=== PATIENT | male | born 1980 | race Caucasian/White ===

== ENCOUNTER 2019-09-30 19:50 | Inpatient (IN) ==
[2019-09-30] MEDS ORDERED: ONDANSETRON INJ 2 MG/ML 2 ML VIAL IV STA (20:17)
[2019-09-30] MEDS ORDERED: KETOROLAC TROMETHAMINE 15 MG/ML VIAL IV ONE (20:17)
[2019-09-30] MEDS ORDERED: SODIUM CHLORIDE 0.9% 1000ML 2,000 ML IV ONE (20:26)
[2019-09-30 20:36] LABS: Basophils # (auto) 0.05 K/uL (0-0.2); Basophils % (auto) 0.5 %; Eosinophils # (auto) 0.66 K/uL (0-0.5); Eosinophils % (auto) 6.9 %; Hematocrit (blood only) 46.6 % (42-52); Hemoglobin 16.7 g/dL (14.0-18.0); Immature Granulocytes # (auto) 0.02 K/uL (0.00-0.02); Immature Granulocytes % (auto) 0.2 %; Lymphocytes # (auto) 1.94 K/uL (1.2-3.4); Lymphocytes % (auto) 20.3 %; Mean Corpuscular Hemoglobin 30.6 pg (25-34); Mean Corpuscular Hgb Conc 35.8 g/dL (32-36); Mean Corpuscular Volume 85.5 fL (80-100); Mean Platelet Volume 9.6 fL (7.4-10.4); Monocytes # (auto) 0.54 K/uL (0.11-0.59); Monocytes % (auto) 5.7 %; Neutrophils # (auto) 6.34 K/uL (1.4-6.5); Neutrophils % (auto) 66.4 %; Platelet Count 177 K/uL (130-400); RDW Coefficient of Variation 12.4 % (11.5-14.5); RDW Standard Deviation 38.2 fL (36.4-46.3); Red Blood Count 5.45 M/uL (4.7-6.1); White Blood Count 9.55 K/uL (4.8-10.8)
[2019-09-30 20:40] LABS: Appearance Urine Clear (Clear); Bacteria Urine Automated Negative (Negative); Bilirubin Urine Negative (Negative); Blood Urine Trace (Negative); Color Urine Yellow; Glucose Urine UA Negative (Negative); Ketones Urine Negative (Negative); Leukocyte Esterase Urine Trace (Negative); Nitrite Urine Negative (Negative); Protein Urine 1+ (Negative); RBC Urine Automated 0-4 /hpf (0-4); Specific Gravity Urine 1.026 (1.000-1.030); Urobilinogen Urine Negative (Negative); pH Urine 5.5 (4.5-7.5)
[2019-09-30 20:48] LABS: Albumin Level 3.6 gm/dl (3.4-5.0); Calcium 8.8 mg/dl (8.5-10.1); Creatinine Clr Calc Pharmacy 102.9 ml/min; Est GFR (African American) 97.2; Est GFR (Non-African American) 83.9; Potassium 3.6 mmol/L (3.5-5.1)
[2019-09-30 20:51] LABS: Albumin Globulin Ratio 0.9 (0.9-2); Bilirubin,Total 0.7 mg/dl (0.2-1); Total Protein 7.6 gm/dl (6.4-8.2)
[2019-09-30] MEDS ORDERED: IOVERSOL 100ml IV PRN (21:07)
--- NOTE | 2019-09-30 21:29 | CT Scan Report ---
CT OF THE ABDOMEN AND PELVIS WITH CONTRAST CLINICAL HISTORY: Left mid abdominal pain. COMPARISON STUDY: None. TECHNIQUE: Following IV administration of 94 mL of Optiray-320, axial images of the abdomen and pelvi s were obtained from the lung bases to the proximal femurs. Images were reviewed in the axial, sagitt al, and coronal planes. IV contrast was administered without complication. Automated exposure contro l was utilized for the study. A dose lowering technique was utilized adhering to the principles of A JAMIR. CT DOSE: 842.39 mGy.cm FINDINGS: Imaged portions of the lower chest demonstrate a trace left pleural effusion with left basi lar opacity suggestive of atelectasis. No fractures are identified within the visualized lower ribs. Fatty infiltration of the liver is noted. The adrenal glands, kidneys and pancreas are normal. There is mild to moderate splenomegaly. There is trace fluid along the inferior aspect of the spleen. There is an equivocal small laceration within the medial aspect of the spleen shown on axial image 71 of 5 16. There is trace fluid within the pelvis. There is no evidence for a bowel obstruction. The appendi x is normal. No pneumatosis, free air or portal venous gas is present. No suspicious osseous lesions are noted. There is no hydronephrosis. IMPRESSION: 1. Mild to moderate splenomegaly with trace fluid along the inferior aspect of the spleen which measu res just above water attenuation. This fluid is nonspecific however a splenic source is favored. Equi vocal small laceration within the medial aspect of the spleen. Correlation with trauma history is rec ommended. Close clinical follow-up is suggested. Findings discussed with Dr. Alvarado at time of dictat ion. 2. Fatty infiltration of the liver. ACT 112: Negative or not required by law. Electronically signed by: Best Oconnor M.D. 09/30/2019 9:28 PM
--- NOTE | 2019-09-30 22:15 | History & Physical Report ---
Date of Service September 30, 2019 Assessment & Plan (1) Left flank pain: (2) Splenic laceration: Review of his CAT scan he has a very minimal antral injury to the spleen minimal fluid. We will admit him for observation And I will asked the medical team to see him. We will repeat his H&H Does have mild splenomegaly which we may consider hematology consult at some point He most likely can be discharged home in 1 to 2 days pending on his progress History of Present Illness Primary Care Provider: NO PCP Patient presented to the emergency room he may have a kidney stone which she had when he was much younger He had some left upper quadrant pain several days ago which now is like it extended to his hip or in the flank area He had a CAT scan done is essentially normal except a relatively large spleen a potential wall laceration minimal fluid His vital signs are stable his H&H is stable Certainly does not appear to be any major active bleeding He does have a very large dog which could have jumped on him Allergies Allergy/AdvReac Type Severity Reaction Status Date / Time aspirin Allergy Unknown Unverified 09/30/19 21:13 onion Allergy Hives Unverified 09/30/19 21:12 CHERRIES Allergy Hives Uncoded 09/30/19 21:11 Home Medications Home Medications Medication Instructions Recorded Confirmed Type albuterol sulfate [Proventil HFA] 2 puff INHALATION DAILY 09/30/19 09/30/19 History aspirin [Aspir-Low] 81 mg PO DAILY 09/30/19 09/30/19 History Past Med/Surg History Medical History Kidney stones Surgical History No significant past surgical history Social History Preferred Language: Thai Feels Safe at Home: Yes Smoking Status: Former smoker Review of Systems Review of Systems: All systems reviewed & are unremarkable except as noted in HPI & below Physical Exam Physical Exam: His abdomen is flat and soft he has minimal pain and only slight tenderness in the left lower flank area Constitutional: well developed and well nourished; no acute distress Respiratory: normal respiratory effort; no respiratory distress Cardiovascular: Rate/Rhythm: regular rate and regular rhythm Skin: no rashes, warm and dry Neurologic: awake Psychiatric: Orientation: alert Results & Data Vital Signs (Past 12 Hours) Vital Signs Temp Pulse Pulse Resp BP BP Pulse Ox 09/30/19 22:08 98 H 18 137/81 94 09/30/19 21:44 96 H 18 120/80 95 09/30/19 20:47 96 H 20 133/81 95 09/30/19 19:55 37.1 C 108 H 16 138/84 94 I did review his CAT scan PG Care Time/CCT Total # of Minutes Spent Total Time Spent with Patient: Total time spent is greater than 50% in coordination of care (as documented) at patient's floor/unit and/or counseling patient:
--- NOTE | 2019-09-30 22:26 | XRay Report ---
XR chest 1V portable CLINICAL HISTORY: COUGH COMPARISON STUDY: No previous studies for comparison. FINDINGS: Lung volumes are mildly diminished. Lungs are clear. There is no pneumothorax or pleural ef fusion. Cardiac size is normal. Mediastinal contours are normal. There is no evidence for pulmonary e shiva. IMPRESSION: Low lung volumes. No acute findings. ACT 112: Negative or not required by law. Electronically signed by: Best Oconnor M.D. 09/30/2019 10:25 PM
--- NOTE | 2019-09-30 23:15 | Hospitalist Consultation ---
Date of Consultation September 30, 2019 Assessment & Plan (1) Splenic laceration: 39 yo M presents to [facility] with complaints of L flank pain that is resolving and found to have equivocal small laceration within the medial aspect of the spleen on CT Abd/Pelvis. L Flank Pain/Splenic Laceration -CT Abd/Pelvis: Mild to moderate splenomegaly with trace fluid along the inferior aspect of the spleen. This fluid is nonspecific however a splenic source is favored. Equivocal small laceration within the medial aspect of the spleen. -suspect that this is MSK in nature. Pt endorses pain secondary to coughing, and he had significant coughing spells 2/2 URI ~1 wk [employer] -no kidney stone seen on imaging. UA unremarkable overall: trace blood, trace LE, 10-30 WBC -Splenomegaly likely trauma induced. Can consider hematology consult otherwise -given pt is hemodynamically stable and that this is not even a Grade I (Subcapsular hematoma <10 percent surface area. Parenchymal laceration <1 cm in depth) splenic injury, likely to be nonoperative management -Dr. Barrow is the primary and is following -Pain: pt rates pain 2/10 currently. PRN [place] 5/325 mg q4h ordered. Heat pad ordered. -PRN Zofran/Phenergan for nausea FEN/GI: Regular Diet DVT Prophylaxis: SCD's, Ambulation Full Code Dispo: Admit for Obs. Likely d/c in 1-2 days. Supervising Physician Co-Signing Physician Notes Attending addendum: I have physically seen this patient, have supervised the medical residents activities, and agree with the H&P unless as otherwise noted. Assessment and Plan: Splenic laceration/mild to moderate splenomegaly- Per attending surgical service Dr. Barrow. Hold aspirin Normal CBC with differential including platelets. Asthma- Continue albuterol sulfate HFA 2 puffs 4 times daily as needed Monitor for possible secondary pneumonias due to splinting from taking deep breaths associated with left flank pain We will follow along during hospital stay. History of Present Illness Reason for Consultation: L flank pain Requesting Physician: Dr. Barrow Attending Physician: Dr. Roth History of Present Illness 39 yo M with PMH of undocumented Afib and asthma presents to [facility] with concerns of L flank pain. Pt is with his and both are reliable historians. This started 2 days [employer], and was the first time pt had ever experienced pain like this. Pt with h/o kidney stone previously, but this did not feel similar. Pain described as sharp, but has since moved inferiorly in direction. Was initially felt at level of 12th rib on left side, and has now moved down to L pelvic area. Non radiating. Pain made worse with certain movements and coughing. Pt has tried ibuprofen 2 tabs and Benadryl, which seems to have improved symptoms. Pain went from a 8-9/10 at its worst to a 2-3/10 at present. Of note, pt states he had URI sxs about one week ago (resolving) and notes he had significant coughing fits/spells that would cause associated rib pain. Pt otherwise denies any N/V/D, constipation, decreased appetite, bloody stools, fever, chills, CP, SOB, or any urinary symptoms of dysuria or hematuria. Pt additionally cannot recall any trauma, but does note that his very large dog (>85lbs) sleeps with him and may have stepped on him during his sleep. Pt with no other acute concerns or complaints. ER Course: IV Toradol 15 mg, IV Zofran, NSS CXR: Low lung volumes. No acute findings. CT Abd/Pelvis: Mild to moderate splenomegaly with trace fluid along the inferior aspect of the spleen which measures just above water attenuation. This fluid is nonspecific however a splenic source is favored. Equivocal small laceration within the medial aspect of the spleen. No pertinent abnormal labs. Family Hx- pt is unsure of family background so does not know any significant hx Social: Current Vape use. Former smoker (quit 3 yrs ago). Otherwise denies any alcohol or illicit drug use Surgical hx: Knee operations to both knees 'many years ago' Allergies Allergy/AdvReac Type Severity Reaction Status Date / Time aspirin Allergy Unknown Unverified 09/30/19 21:13 onion Allergy Hives Unverified 09/30/19 21:12 CHERRIES Allergy Hives Uncoded 09/30/19 21:11 Home Medications Home Medications Medication Instructions Recorded Confirmed Type albuterol sulfate [Proventil HFA] 2 puff INHALATION DAILY 09/30/19 09/30/19 History aspirin [Aspir-Low] 81 mg PO DAILY 09/30/19 09/30/19 History Patient History Medical History Kidney stones Surgical History No significant past surgical history Social History Preferred Language: Setswana Communication Ability: Effective 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 Beliefs That Will Affect Care: None Current Living Situation: Spouse and Family Feels Safe at Home: Yes Safety Concerns: Feels Safe At This Time Smoking Status: Never smoker Tobacco Type: e-cigarettes ; Hx Alcohol Use: No Hx Substance Use: No Review of Systems Review of Systems: All systems reviewed & are unremarkable except as noted in HPI & below Physical Exam Constitutional: WD/WN, vitals as above Eyes: PERRL, conjunctivae normal, anicteric sclerae ENMT: external ear and nose normal, oropharynx normal Respiratory: normal respiratory effort, lungs clear to auscultation Cardiovascular: RRR, no murmur, no edema Gastrointestinal (Abdomen): normal bowel sounds, soft, nontender, no hepatosplenomegaly Musculoskeletal: Mild TTP in L flank/lower 12th rib posteriorly Skin: no rashes, warm and dry Psychiatric: A+Ox3, euthymic affect Results & Data Vital Signs (Past 12 Hours) Vital Signs Temp Pulse Pulse Resp BP BP Pulse Ox 09/30/19 23:00 87 18 136/104 H 96 09/30/19 22:08 98 H 18 137/81 94 09/30/19 21:44 96 H 18 120/80 95 09/30/19 20:47 96 H 20 133/81 95 09/30/19 19:55 37.1 C 108 H 16 138/84 94 Laboratory Results Laboratory Results - last 24 hr 09/30/19 09/30/19 09/30/19 20:21 20:21 20:21 WBC 9.55 RBC 5.45 Hgb 16.7 Hct 46.6 MCV 85.5 MCH 30.6 MCHC 35.8 RDW Std Deviation 38.2 RDW Coeff of Tanja 12.4 Plt Count 177 MPV 9.6 Immature Gran % (Auto) 0.2 Neut % (Auto) 66.4 Lymph % (Auto) 20.3 Carbon % (Auto) 5.7 Eos % (Auto) 6.9 Baso % (Auto) 0.5 Immature Gran # (Auto) 0.02 Neut # (Auto) 6.34 Lymph # (Auto) 1.94 Carbon # (Auto) 0.54 Eos # (Auto) 0.66 H Baso # (Auto) 0.05 Sodium 139 Potassium 3.6 Chloride 107 Carbon Dioxide 27 Anion Gap 5.0 BUN 15 Creatinine 1.09 Est Cr Clr Drug Dosing 102.9 Est GFR ( Amer) 97.2 Est GFR (Non-Af Amer) 83.9 BUN/Creatinine Ratio 14.0 Glucose 174 H Calcium 8.8 Total Bilirubin 0.7 AST 29 ALT 78 Alkaline Phosphatase 45 Total Protein 7.6 Albumin 3.6 Globulin 4.0 Albumin/Globulin Ratio 0.9 Lipase 106 Urine Color Yellow Urine Appearance Clear Urine pH 5.5 Ur Specific [place] 1.026 Urine Protein 1+ H Urine Glucose (UA) Negative Urine Ketones Negative Urine Blood Trace H Urine Nitrite Negative Urine Bilirubin Negative Urine Urobilinogen Negative Ur Leukocyte Esterase Trace H Urine WBC (Auto) 10-30 H Urine RBC (Auto) 0-4 U Hyaline Cast (Auto) 1-5 U Epithel Cells (Auto) 10-20 H Urine Bacteria (Auto) Negative Medications Administered Current Inpatient Medications Ioversol (Optiray 320 100ml) 94 ml IV ONCE PRN PRN Reason: Interaction Checking Stop: 10/04/19 21:06 Last Admin: 09/30/19 21:07 Dose: 94 ml Documented by: Resident Activity Tracking Resident Involvement: Resident Care Provided Care Provided: Adult Hospital Medicine (1) Splenic laceration Encounter type: initial encounter Qualified Code(s): S36.039A - Unspecified laceration of spleen, initial encounter
--- NOTE | 2019-09-30 23:53 | Emergency Department Note ---
Entered by Destiney Pacheco acting as a scribe for Bob Alvarado DO History of Present Illness General Chief complaint: Abdominal Pain Stated complaint: ABDOMINAL PAIN Source: patient History of Present Illness Onset (ago): hour(s) (last night) Location: abdomen (left sided near top of ribs, radiated from back ) Radiation: abdomen (lower ) Pain Consistency: + constant Maximum Pain Intensity: 9 Current Pain Intensity: 4 Relieved By: + other (position changes ) Exacerbated By: + movement (twisting, turning, bending ) and + other (coughing, taking a deep breath) Associated symptoms: + denies other symptoms (rhinorrhea, dysuria, testicular pain ); no chest pain, no cough and no shortness of breath Treatments prior to arrival: other (Tylenol) The patient is a 39 year old male with a history of kidney stones who presents to the Emergency Room with complaints of abdominal pain. The patient states that he woke up from sleep last night and began to experience left sided abdominal pain near the top of his rib that radiated from his back. He reports that his pain is now radiating to his lower abdomen. His abdominal pain is exacerbated with coughing and taking a deep breath as well as movement including twisting, turning, and bending. He states that his pain is sometimes improved when he changes positions. His current pain is a 4/10 and he states that it is a 9/10 at its worst. He has taken Tylenol without relief. Of note, the patient does not have a history of abdominal surgeries. He denies shortness of breath, chest pricila n, cough, rhinorrhea, dysuria, testicular pain, and recent falls or trauma. The patient offers no further concerns at this time. Home Medications Home Medications Medication Instructions Recorded Confirmed Type albuterol sulfate [Proventil HFA] 2 puff INHALATION DAILY 09/30/19 09/30/19 History aspirin [Aspir-Low] 81 mg PO DAILY 09/30/19 09/30/19 History Allergies Allergy/AdvReac Type Severity Reaction Status Date / Time aspirin Allergy Unknown Unverified 09/30/19 21:13 onion Allergy Hives Unverified 09/30/19 21:12 CHERRIES Allergy Hives Uncoded 09/30/19 21:11 Past Med/Surg History Medical History Kidney stones Surgical History No significant past surgical history Social History Preferred Language: Tanzanian Feels Safe at Home: Yes Smoking Status: Former smoker Review of Systems See HPI for pertinent positives & negatives. and A total of 10 systems reviewed and were otherwise negative Physical Exam Vital Signs Vital Signs - 24 hr 09/30/19 19:55 09/30/19 20:44 09/30/19 20:47 Temperature 37.1 C Temperature Source Oral Pulse Rate 108 H Pulse Rate [Left Apical] 96 H Respiratory Rate 16 20 Respiratory Effort / Characteristics Non-Labored Respiratory Depth Normal Blood Pressure 138/84 Blood Pressure [Right Arm] 133/81 Blood Pressure Mean 102 Blood Pressure Mean [Right Arm] 98 Pulse Oximetry 94 95 Oxygen Delivery Method Room Air Room Air Room Air Sepsis Recent Fever Within 48 Hours No Sepsis New/Unexplained Change in Mental Status No Sepsis Action Taken by Nursing No Action Required 09/30/19 21:44 09/30/19 22:08 09/30/19 23:00 Temperature Temperature Source Pulse Rate Pulse Rate [Left Apical] 96 H 98 H 87 Respiratory Rate 18 18 18 Respiratory Effort / Characteristics Respiratory Depth Blood Pressure Blood Pressure [Right Arm] 120/80 137/81 136/104 H Blood Pressure Mean Blood Pressure Mean [Right Arm] 93 99 114 Pulse Oximetry 95 94 96 Oxygen Delivery Method Room Air Room Air Room Air Sepsis Recent Fever Within 48 Hours Sepsis New/Unexplained Change in Mental Status Sepsis Action Taken by Nursing GENERAL: alert, sitting up in bed, wearing hospital gown, well nourished, no distress, non-toxic EYE EXAM: normal conjunctiva OROPHARYNX: no exudate, no erythema, lips, buccal mucosa, and tongue normal and mucous membranes are moist NECK: supple, no nuchal rigidity, no adenopathy, non-tender LUNGS: Clear to auscultation. Normal chest wall mechanics HEART: no murmurs, S1 normal and S2 normal ABDOMEN: abdomen soft, left mid abdomen tender to palpation, normo-active bowel sounds, no masses, no rebound or guarding. BACK: Back is symmetrical on inspection and there is no deformity, no midline tenderness, no CVA tenderness. SKIN: no rashes and no bruising UPPER EXTREMITIES: upper extremities are grossly normal. LOWER EXTREMITIES: No pitting edema. NEURO EXAM: Normal sensorium, cranial nerves II-XII grossly intact, normal speech, no gross weakness of arms, no gross weakness of legs. Course Course ED COURSE: Vital signs were reviewed and showed elevated BP. The patients medical record was reviewed The above diagnostic studies were performed and reviewed. ED treatments and interventions as stated above. 2020: The patient was evaluated in room A02. A complete history and physical examination was performed. 2154: Upon reevaluation, the patient is resting.I discussed my findings with the patient and he understands and agrees with the treatment plan. Based on the patients age, coexisting illnesses, exam and lab findings the decision to treat as an inpatient was made. The patient remained stable while under my care. The patient will be evaluated for further management by Dr. Barrow. Administered Medications Ioversol (Optiray 320 100ml) 94 ml IV ONCE PRN PRN Reason: Interaction Checking Stop: 10/04/19 21:06 Last Admin: 09/30/19 21:07 Dose: 94 ml Documented by: [id number] Discontinued Medications Sodium Chloride (Nss 1000ml) 2,000 mls @ 999 mls/hr IV .Q2H1M ONE Stop: 09/30/19 22:26 Last Infusion: 09/30/19 22:32 Dose: 0 mls/hr Documented by: [id number] Admin: 09/30/19 20:32 Dose: 999 mls/hr Documented by: [id number] Ketorolac Tromethamine (Toradol) 15 mg IV NOW ONE Stop: 09/30/19 20:18 Last Admin: 09/30/19 20:33 Dose: 15 mg Documented by: [id number] Ondansetron HCl (Zofran) 4 mg IV NOW STA Stop: 09/30/19 20:18 Last Admin: 09/30/19 20:33 Dose: 4 mg Documented by: [id number] Medical Decision Making Differential Diagnosis Differential diagnoses includes but is not limited to gastritis, peptic ulcer disease, GERD, gallbladder disease, pancreatitis, small bowel obstruction, acute coronary syndrome, pericarditis, ischemic bowel, irritable bowel disease, irritable bowel syndrome, appendicitis, diverticulitis, malignancy, hernia, urinary tract infection, torsion, perforation, trauma, infectious. Medical Records Attestation: I reviewed the patient's medical records. Home Medications Current Medication List: was personally reviewed by me Laboratory Data Attestation: I reviewed the patient's lab results. Result diagrams: 09/30/19 20:21 09/30/19 20:21 Lab Results 09/30/19 09/30/19 09/30/19 Range/Units 20:21 20:21 20:21 WBC 9.55 (4.8-10.8) K/uL RBC 5.45 (4.7-6.1) M/uL Hgb 16.7 (14.0-18.0) g/dL Hct 46.6 (42-52) % MCV 85.5 (80-100) fL MCH 30.6 (25-34) pg MCHC 35.8 (32-36) g/dL RDW Std Deviation 38.2 (36.4-46.3) fL RDW Coeff of Tanja 12.4 (11.5-14.5) % Plt Count 177 (130-400) K/uL MPV 9.6 (7.4-10.4) fL Immature Gran % (Auto) 0.2 % Neut % (Auto) 66.4 % Lymph % (Auto) 20.3 % [place] % (Auto) 5.7 % Eos % (Auto) 6.9 % Baso % (Auto) 0.5 % Immature Gran # (Auto) 0.02 (0.00-0.02) K/uL Neut # (Auto) 6.34 (1.4-6.5) K/uL Lymph # (Auto) 1.94 (1.2-3.4) K/uL [place] # (Auto) 0.54 (0.11-0.59) K/uL Eos # (Auto) 0.66 H (0-0.5) K/uL Baso # (Auto) 0.05 (0-0.2) K/uL Sodium 139 (136-145) mmol/L Potassium 3.6 (3.5-5.1) mmol/L Chloride 107 (98-107) mmol/L Carbon Dioxide 27 (21-32) mmol/L Anion Gap 5.0 (3-11) BUN 15 (7-18) mg/dl Creatinine 1.09 (0.6-1.4) mg/dl Est Cr Clr Drug Dosing 102.9 ml/min Est GFR ( Amer) 97.2 Est GFR (Non-Af Amer) 83.9 BUN/Creatinine Ratio 14.0 (10-20) Glucose 174 H (70-99) mg/dl Calcium 8.8 (8.5-10.1) mg/dl Total Bilirubin 0.7 (0.2-1) mg/dl AST 29 (15-37) U/L ALT 78 (12-78) U/L Alkaline Phosphatase 45 (45-117) U/L Total Protein 7.6 (6.4-8.2) gm/dl Albumin 3.6 (3.4-5.0) gm/dl Globulin 4.0 (2.5-4.0) gm/dl Albumin/Globulin Ratio 0.9 (0.9-2) Lipase 106 (73-393) U/L Urine Color Yellow Urine Appearance Clear (Clear) Urine pH 5.5 (4.5-7.5) Ur Specific [place] 1.026 (1.000-1.030) Urine Protein 1+ H (Negative) Urine Glucose (UA) Negative (Negative) Urine Ketones Negative (Negative) Urine Blood Trace H (Negative) Urine Nitrite Negative (Negative) Urine Bilirubin Negative (Negative) Urine Urobilinogen Negative (Negative) Ur Leukocyte Esterase Trace H (Negative) Urine WBC (Auto) 10-30 H (0-5) /hpf Urine RBC (Auto) 0-4 (0-4) /hpf U Hyaline Cast (Auto) 1-5 (0-5) /lpf U Epithel Cells (Auto) 10-20 H (0-5) /lpf Urine Bacteria (Auto) Negative (Negative) Imaging Data Radiologist's Impression: Radiology results as stated below per my review and the radiologist's interpretation: CT OF THE ABDOMEN AND PELVIS WITH CONTRAST CLINICAL HISTORY: Left mid abdominal pain. COMPARISON STUDY: None. TECHNIQUE: Following IV administration of 94 mL of Optiray-320, axial images of the abdomen and pelvis were obtained from the lung bases to the proximal femurs. Images were reviewed in the axial, sagittal, and coronal planes. IV contrast was administered without complication. Automated exposure control was utilized for the study. A dose lowering technique was utilized adhering to the principles of ALARA. CT DOSE: 842.39 mGy.cm FINDINGS: Imaged portions of the lower chest demonstrate a trace left pleural effusion with left basilar opacity suggestive of atelectasis. No fractures are identified within the visualized lower ribs. Fatty infiltration of the liver is noted. The adrenal glands, kidneys and pancreas are normal. There is mild to moderate splenomegaly. There is trace fluid along the inferior aspect of the spleen. There is an equivocal small laceration within the medial aspect of the spleen shown on axial image 71 of 516. There is trace fluid within the pelvis. There is no evidence for a bowel obstruction. The appendix is normal. No pneumatosis, free air or portal venous gas is present. No suspicious osseous lesions are noted. There is no hydronephrosis. IMPRESSION: 1. Mild to moderate splenomegaly with trace fluid along the inferior aspect of the spleen which measures just above water attenuation. This fluid is nonspecific however a splenic source is favored. Equivocal small laceration within the medial aspect of the spleen. Correlation with trauma history is recommended. Close clinical follow-up is suggested. Findings discussed with Dr. Alvarado at time of dictation. 2. Fatty infiltration of the liver. ACT 112: Negative or not required by law. Electronically signed by: Best Oconnor M.D. 09/30/2019 9:28 PM XR chest 1V portable CLINICAL HISTORY: COUGH COMPARISON STUDY: No previous studies for comparison. FINDINGS: Lung volumes are mildly diminished. Lungs are clear. There is no pneumothorax or pleural effusion. Cardiac size is normal. Mediastinal contours are normal. There is no evidence for pulmonary edema. IMPRESSION: Low lung volumes. No acute findings. ACT 112: Negative or not required by law. Electronically signed by: Best Oconnor M.D. 09/30/2019 10:25 PM Blood Pressure Blood Pressure Findings: Elevated blood pressure Blood Pressure Disposition: further management by hospitalist OSCAR Narrative Patient is a 39-year-old male who presents the ER for left upper quadrant abdo ari pain. Occurred on and he has never had any like this before in the past. He denies taking any blood thinners with the exception of aspirin. He notes he has been having a bad cough recently. Pain is worse with twisting turning bending or any kind of movement. He does note that he has 2 large dogs that occasionally will climb on him at night. Denies any trauma. IV was established blood work was obtained. Labs show no significant leukocytosis or anemia. BMP along with LFTs bilirubin and lipase was remarkable for slightly elevated blood sugar. UA was unremarkable. CT abdomen pelvis shows a questionable small grade splenic laceration with a small amount of fluid. This it did occur on . He denies any trauma and I question if this is secondary to coughing versus his dogs jumping on him while getting in bed as there are large dogs. Either way patient was updated bedside. Discussed with general surgery and they were comfortable monitoring him. Patient was updated bedside. Did attempt to contact the hospitalist as general surgery did want to consult. Impression & Plan Splenic laceration, Abdominal pain, Cough Discharge Plan Visit Data Chief Complaint: Abdominal Pain Stated Complaint: ABDOMINAL PAIN ED Provider: Bob Alvarado Discharge Problem: Splenic laceration, Abdominal pain, Cough Patient Disposition: Admitted As Inpatient Forms Stand Alone Forms: Call Back Authorization, [facility] Prescriptions Prescriptions: No Action albuterol sulfate [Proventil HFA] 90 mcg/actuation Hfa Aerosol Inhaler 2 puff INHALATION DAILY RF: 0 aspirin [Aspir-Low] 81 mg Tablet,Delayed Release (Dr/Ec) 81 mg PO DAILY RF: 0 Referrals Referrals: PCP,NO [Primary Care Provider] - Discharge Problem: Splenic laceration Qualifiers: Encounter type: initial encounter Qualified Code(s): S36.039A - Unspecified laceration of spleen, initial encounter Abdominal pain Qualifiers: Abdominal location: left upper quadrant Qualified Code(s): R10.12 - Left upper quadrant pain The scribe's documentation has been prepared under my direction and personally reviewed by me in its entirety. I confirm that the note above accurately reflects all work, treatment, procedures, and medical decision making performed by me.
[2019-10-01] MEDS ORDERED: PROMETHAZINE HCL 12.5 MG in SODIUM CHLORIDE 0.9% 50 ML IV PRN (00:17)
[2019-10-01] MEDS ORDERED: ONDANSETRON INJ 2 MG/ML 2 ML VIAL IV PRN (00:17)
[2019-10-01] MEDS ORDERED: HYDROCODONE/ACETAMOPHEN 5/325MG TAB PO PRN (00:17)
[2019-10-01] MEDS ORDERED: ACETAMINOPHEN 325 MG TAB PO PRN (00:17)
[2019-10-01] MEDS: HYDROCODONE/ACETAMOPHEN 5/325MG TAB PO PRN ×4 (02:53→23:09)
[2019-10-01 05:53] LABS: Basophils # (auto) 0.05 K/uL (0-0.2); Basophils % (auto) 0.7 %; Eosinophils # (auto) 0.63 K/uL (0-0.5); Eosinophils % (auto) 8.6 %; Hematocrit (blood only) 42.2 % (42-52); Immature Granulocytes # (auto) 0.01 K/uL (0.00-0.02); Immature Granulocytes % (auto) 0.1 %; Lymphocytes # (auto) 1.99 K/uL (1.2-3.4); Lymphocytes % (auto) 27.1 %; Mean Corpuscular Hemoglobin 30.4 pg (25-34); Mean Corpuscular Hgb Conc 35.5 g/dL (32-36); Mean Corpuscular Volume 85.4 fL (80-100); Mean Platelet Volume 9.6 fL (7.4-10.4); Monocytes # (auto) 0.67 K/uL (0.11-0.59); Monocytes % (auto) 9.1 %; Neutrophils # (auto) 3.98 K/uL (1.4-6.5); Neutrophils % (auto) 54.4 %; Platelet Count 151 K/uL (130-400); RDW Coefficient of Variation 12.1 % (11.5-14.5); RDW Standard Deviation 37.4 fL (36.4-46.3); Red Blood Count 4.94 M/uL (4.7-6.1); White Blood Count 7.33 K/uL (4.8-10.8)
[2019-10-01 06:27] LABS: BUN Creatinine Ratio 15.2 (10-20); Calcium 8.7 mg/dl (8.5-10.1); Creatinine Clr Calc Pharmacy 112.1 ml/min; Est GFR (African American) 106.6; Potassium 3.8 mmol/L (3.5-5.1)
--- NOTE | 2019-10-01 07:00 | Surgery Progress Note ---
Date of Service October 01, 2019 Assessment & Plan (1) Splenic laceration: pt is stable will allow to walk ch H/H later today ? med team/heme thoughts for splenomegaly likely d/c tomorrow Subjective awake, alert, vitals stable some mild discomfort Lt side- less than several days ago h/h stable Physical Exam Constitutional: well developed and well nourished; no acute distress Respiratory: normal respiratory effort; no respiratory distress Cardiovascular: Rate/Rhythm: regular rate and regular rhythm Gastrointestinal (Abdomen): Inspection/Auscultation: abdomen normal to inspection Percussion/Palpation: abdomen soft Skin: no rashes, warm and dry Neurologic: awake Psychiatric: Orientation: alert Results & Data Vital Signs (Past 12 Hours) Vital Signs Temp Pulse Pulse Resp BP BP Pulse Ox 10/01/19 00:14 37 C 89 16 132/95 94 09/30/19 23:54 88 18 126/87 95 09/30/19 23:00 87 18 136/104 H 96 09/30/19 22:08 98 H 18 137/81 94 09/30/19 21:44 96 H 18 120/80 95 09/30/19 20:47 96 H 20 133/81 95 09/30/19 19:55 37.1 C 108 H 16 138/84 94 PG Care Time/CCT Total # of Minutes Spent Total Time Spent with Patient: Total time spent is greater than 50% in coordination of care (as documented) at patient's floor/unit and/or counseling patient: (1) Splenic laceration Encounter type: initial encounter Qualified Code(s): S36.039A - Unspecified laceration of spleen, initial encounter
[2019-10-01] MEDS ORDERED: ALBUTEROL HFA 8 GM INHALER INH SCH (09:00)
--- NOTE | 2019-10-01 10:15 | Hospitalist Progress Note ---
Date of Service October 01, 2019 Assessment & Plan (1) Splenic laceration: Seems to be stable from this perspective with improvement of pain. Further management per primary service, suspect to be nonsurgical. Will sign off, please call with questions or concerns. Subjective Patient seen and examined. He tells me the pain in his left abdomen is much improved. I did asked patient he tells me he has no active medical problems and I note he only takes a low-dose aspirin a day and Proventil as needed. He denies any chest pain, shortness, right-sided abdominal pain, or any other issues at this time. Physical Exam Constitutional: cooperative; no acute distress Neck: trachea midline, no thyromegaly Respiratory: normal respiratory effort Auscultation: lungs clear to auscultation bilaterally; no crackles, no rales, no rhonchi and no wheezes Cardiovascular: Rate/Rhythm: regular rate and regular rhythm Heart Sounds: normal S1 and normal S2 Gastrointestinal (Abdomen): Inspection/Auscultation: abdomen normal to inspection Percussion/Palpation: abdomen soft; abdomen nontender, no g uarding, abdomen not rigid and no hepatosplenomegaly Skin: no rashes, warm and dry Results & Data Vital Signs (Past 12 Hours) Vital Signs Temp Pulse Pulse Resp BP BP Pulse Ox 10/01/19 07:49 36.6 C 75 16 135/88 94 10/01/19 00:14 37 C 89 16 132/95 94 09/30/19 23:54 88 18 126/87 95 09/30/19 23:00 87 18 136/104 H 96 PG Care Time/CCT Total # of Minutes Spent Total Time Spent with Patient: Total time spent is greater than 50% in coordination of care (as documented) at patient's floor/unit and/or counseling patient: (1) Splenic laceration Encounter type: initial encounter Qualified Code(s): S36.039A - Unspecified l aceration of spleen, initial encounter
[2019-10-01 17:59] LABS: Hematocrit (blood only) 43.2 % (42-52); Hemoglobin 15.2 g/dL (14.0-18.0)
--- NOTE | 2019-10-01 20:17 | Billing Data ---
Date of Service October 01, 2019 Coding Level of Care Code 01444 Inpt Consult Level 2
[2019-10-01] MEDS ORDERED: SODIUM CHLORIDE 0.65% NA SOLN 45 ML (OCEAN) ONE (23:08)
--- NOTE | 2019-10-02 08:41 | Discharge Summary ---
PRINCIPAL DIAGNOSIS: Splenic laceration. HISTORY OF PRESENT ILLNESS: The patient is a 39-year-old male who was having left flank pain for several days which seemed to move from cephalad to caudad and on CAT scan was noted with moderate splenomegaly and a small area which appeared to be a splenic laceration with possible small amount of fluid near the spleen. The patient did not have any significant fall in his hemoglobin or hematocrit, and did not show evidence of significant blood otherwise. He was admitted to the hospital for observation and did very well. I did discuss with one of the hematologists, the possibility of workup for his splenomegaly. We will discharge him home and have him follow up with international flight attendant and my office and also his primary care doctor. We will most likely repeat his CAT scan at some point in the next 7-10 days to be sure this area is stable.
== END 2019-10-02 09:04 | disposition home or self-care (01) | DRG 816 ==
LOC: ED 19:50 → SUATTDRO 23:17 → 3N 23:17